=== PATIENT | female | born 1985 | race Caucasian/White ===

== ENCOUNTER 2020-02-15 12:49 | Emergency (ER) | payer MEDICAID, OTHER ==
--- NOTE | 2020-02-15 13:22 | EDM.PDOC ---
ED HPI GENERAL MEDICAL PROBLEM - General Chief Complaint: Drug or Alcohol Abuse Stated Complaint: DRUG WITHDRAWL Time Seen by Provider: 02/15/20 13:21 - History of Present Illness INITIAL COMMENTS - FREE TEXT/NARRATIVE: 34-year-old female presents to the emergency room after being referred here for medical clearance from [facility]. The patient needs to go to a group home house. And she cannot be on any medications for this the patient's been on Suboxone what sounds like 16 mg twice daily but sometimes she has been out of this for several days now. She is having some anxiety. The patient is to go to the [facility] until she is ready to go to the group home house. The patient has come off Suboxone in the past with the assistance of some Valium like medications according to the patient and has done okay. Generalized Pain Score (Numeric/FACES): 7 - Related Data Allergies Allergy/AdvReac Type Severity Reaction Status Date / Time erythromycin base Allergy Rash Verified 02/15/20 13:17 tramadol Allergy Rash Verified 02/15/20 13:17 Home Meds: Home Meds . [No Known Home Meds] 02/15/20 [History] Past Medical History - Infectious Disease History Infectious Disease History: Reports: Hepatitis C - Past Surgical History Musculoskeletal Surgical History: Reports: Other (See Below) Other Musculoskeletal Surgeries/Procedures:: metal plate in left arm Social & Family History - Tobacco Use Tobacco Use Status *Q: Current Every Day Tobacco User Years of Tobacco use: 23 Packs/Tins Daily: 1 - Caffeine Use Caffeine Use: Reports: None - Recreational Drug Use Recreational Drug Use: Yes Drug Use in Last 12 Months: Yes Recreational Drug Type: Reports: Marijuana/Hashish Recreational Drug Last Use: last December ED ROS GENERAL - Review of Systems Review Of Systems: See Below Constitutional: Reports: No Symptoms HEENT: Reports: No Symptoms Respiratory: Reports: No Symptoms Cardiovascular: Reports: No Symptoms GI/Abdominal: Reports: Nausea. Denies: Abdominal Pain, Vomiting : Reports: No Symptoms Musculoskeletal: Reports: No Symptoms Skin: Reports: No Symptoms Neurological: Reports: No Symptoms Psychiatric: Reports: Anxiety Hematologic/Lymphatic: Reports: No Symptoms Immunologic: Reports: No Symptoms ED EXAM, GENERAL - Physical Exam Exam: See Below Exam Limited By: No Limitations General Appearance: Alert, No Apparent Distress, Other (Is doing well at this time really no tachycardia she is a little anxious) Ears: Normal External Exam, Normal Canal, Hearing Grossly Normal, Normal TMs Ear Exam: Bilateral Ear: Auricle Normal, Canal Normal, TM normal Nose: Normal Inspection, Normal Mucosa, No Blood Throat/Mouth: Normal Inspection, Normal Lips, Normal Teeth, Normal Gums, Normal Oropharynx, Normal Voice, No Airway Compromise Head: Atraumatic, Normocephalic Neck: Normal Inspection Respiratory/Chest: No Respiratory Distress, Lungs Clear, Normal Breath Sounds, No Accessory Muscle Use, Chest Non-Tender Cardiovascular: Regular Rate, Rhythm, No Edema, No Murmur GI/Abdominal: Normal Bowel Sounds, Soft, Non-Tender Back Exam: Normal Inspection. No: CVA Tenderness (L), CVA Tenderness (R) Extremities: Normal Inspection, No Pedal Edema Neurological: Alert, Oriented, Normal Cognition Psychiatric: Anxious (Mildly so) Course - Vital Signs Last Recorded V/S: Last Vital Signs Temp 36.9 C 02/15/20 13:15 Pulse 91 02/15/20 13:15 Resp 16 02/15/20 13:15 BP 127/86 02/15/20 13:15 Pulse Ox 99 02/15/20 13:15 - Orders/Labs/Meds Orders: Active Orders 24 hr Category Date Time Status CULTURE URINE [RM] Stat Lab 02/15/20 16:41 Received Labs: Laboratory Tests 02/15/20 02/15/20 02/15/20 Range/Units 16:40 16:40 16:40 WBC 3.86 L (3.98-10.04) K/mm3 RBC 3.92 L (3.98-5.22) M/mm3 Hgb 11.3 (11.2-15.7) gm/dl Hct 35.2 (34.1-44.9) % MCV 89.8 (79.4-94.8) fl MCH 28.8 (25.6-32.2) pg MCHC 32.1 L (32.2-35.5) g/dl RDW Std Deviation 41.6 (36.4-46.3) fL Plt Count 178 L (182-369) K/mm3 MPV 10.6 (9.4-12.3) fl Neut % (Auto) 46.6 (34.0-71.1) % Lymph % (Auto) 36.3 (19.3-51.7) % [place] % (Auto) 14.2 H (4.7-12.5) % Eos % (Auto) 2.1 (0.7-5.8) Baso % (Auto) 0.5 (0.1-1.2) % Neut # (Auto) 1.80 (1.56-6.13) K/mm3 Lymph # (Auto) 1.40 (1.18-3.74) K/mm3 [place] # (Auto) 0.55 H (0.24-0.36) K/mm3 Eos # (Auto) 0.08 (0.04-0.36) K/mm3 Baso # (Auto) 0.02 (0.01-0.08) K/mm3 Sodium 137 (136-145) mEq/L Potassium 4.0 (3.5-5.1) mEq/L Chloride 103 (98-107) mEq/L Carbon Dioxide 26 (21-32) mEq/L Anion Gap 12.0 (5-15) BUN 8 (7-18) mg/dL Creatinine 0.7 (0.55-1.02) mg/dL Est Cr Clr Drug Dosing 79.80 mL/min Estimated GFR (MDRD) > 60 (>60) mL/min BUN/Creatinine Ratio 11.4 L (14-18) Glucose 108 H (74-106) mg/dL Calcium 8.9 (8.5-10.1) mg/dL Total Bilirubin 0.4 (0.2-1.0) mg/dL AST 70 H (15-37) U/L ALT 102 H (14-59) U/L Alkaline Phosphatase 85 (46-116) U/L Total Protein 7.7 (6.4-8.2) g/dl Albumin 3.1 L (3.4-5.0) g/dl Globulin 4.6 gm/dL Albumin/Globulin Ratio 0.7 L (1-2) TSH 3rd Generation 0.467 (0.358-3.74) uIU/mL HCG, Qual Negative (NEGATIVE) Urine Color (Yellow) Urine Appearance (Clear) Urine pH (5.0-8.0) Ur Specific [place] (1.005-1.030) Urine Protein (Negative) Urine Glucose (UA) (Negative) Urine Ketones (Negative) Urine Occult Blood (Negative) Urine Nitrite (Negative) Urine Bilirubin (Negative) Urine Urobilinogen (0.2-1.0) Ur Leukocyte Esterase (Negative) Urine RBC (0-5) /hpf Urine WBC (0-5) /hpf Ur Squamous Epith Cells (0-5) /hpf Urine Bacteria (FEW) /hpf Urine Mucus (FEW) /hpf Urine Opiates Screen (NVGXTT=136) Ur Buprenorphine Scrn (CUTOFF=10) Ur Oxycodone Screen (PUQ2NI=614) Urine Methadone Screen (IMIGGZ=066) Ur Propoxyphene Screen (IBYAAG=542) Ur Barbiturates Screen (OGSCRZ=241) Ur Tricyclics Screen (MIEBXB=787) Ur Phencyclidine Scrn (CUTOFF=25) Ur Amphetamine Screen (POVJPF=870) U Methamphetamines Scrn (MYZKME=845) U Benzodiazepines Scrn (YHUZCD=748) U Cocaine Metab Screen (GVEBSU=442) U Marijuana (THC) Screen (CUTOFF=50) Ethyl Alcohol 0.00 (0.00) gm% 02/15/20 02/15/20 Range/Units 16:41 16:41 WBC (3.98-10.04) K/mm3 RBC (3.98-5.22) M/mm3 Hgb (11.2-15.7) gm/dl Hct (34.1-44.9) % MCV (79.4-94.8) fl MCH (25.6-32.2) pg MCHC (32.2-35.5) g/dl RDW Std Deviation (36.4-46.3) fL Plt Count (182-369) K/mm3 MPV (9.4-12.3) fl Neut % (Auto) (34.0-71.1) % Lymph % (Auto) (19.3-51.7) % [place] % (Auto) (4.7-12.5) % Eos % (Auto) (0.7-5.8) Baso % (Auto) (0.1-1.2) % Neut # (Auto) (1.56-6.13) K/mm3 Lymph # (Auto) (1.18-3.74) K/mm3 [place] # (Auto) (0.24-0.36) K/mm3 Eos # (Auto) (0.04-0.36) K/mm3 Baso # (Auto) (0.01-0.08) K/mm3 Sodium (136-145) mEq/L Potassium (3.5-5.1) mEq/L Chloride (98-107) mEq/L Carbon Dioxide (21-32) mEq/L Anion Gap (5-15) BUN (7-18) mg/dL Creatinine (0.55-1.02) mg/dL Est Cr Clr Drug Dosing mL/min Estimated GFR (MDRD) (>60) mL/min BUN/Creatinine Ratio (14-18) Glucose (74-106) mg/dL Calcium (8.5-10.1) mg/dL Total Bilirubin (0.2-1.0) mg/dL AST (15-37) U/L ALT (14-59) U/L Alkaline Phosphatase (46-116) U/L Total Protein (6.4-8.2) g/dl Albumin (3.4-5.0) g/dl Globulin gm/dL Albumin/Globulin Ratio (1-2) TSH 3rd Generation (0.358-3.74) uIU/mL HCG, Qual (NEGATIVE) Urine Color Yellow (Yellow) Urine Appearance Cloudy H (Clear) Urine pH 6.0 (5.0-8.0) Ur Specific [place] > or = 1.030 (1.005-1.030) Urine Protein Negative (Negative) Urine Glucose (UA) Negative (Negative) Urine Ketones Negative (Negative) Urine Occult Blood Trace-intact H (Negative) Urine Nitrite Negative (Negative) Urine Bilirubin Negative (Negative) Urine Urobilinogen 0.2 (0.2-1.0) Ur Leukocyte Esterase 2+ H (Negative) Urine RBC 5-10 H (0-5) /hpf Urine WBC 30-40 H (0-5) /hpf Ur Squamous Epith Cells 10-20 H (0-5) /hpf Urine Bacteria Moderate H (FEW) /hpf Urine Mucus Moderate H (FEW) /hpf Urine Opiates Screen Negative (CZHIRL=940) Ur Buprenorphine Scrn Presumptive positive (CUTOFF=10) Ur Oxycodone Screen Negative (GET7AY=982) Urine Methadone Screen Negative (JCLPTL=644) Ur Propoxyphene Screen Negative (MXFFPF=281) Ur Barbiturates Screen Negative (KEFYOC=311) Ur Tricyclics Screen Negative (IFQTFZ=690) Ur Phencyclidine Scrn Negative (CUTOFF=25) Ur Amphetamine Screen Presumptive positive H (YIPSRM=553) U Methamphetamines Scrn Presumptive positive H (DVQMPZ=985) U Benzodiazepines Scrn Negative (NGWLDC=621) U Cocaine Metab Screen Negative (YKZIIT=545) U Marijuana (THC) Screen Presumptive positive H (CUTOFF=50) Ethyl Alcohol (0.00) gm% Meds: Medications Discontinued Medications Generic Name Dose Route Start Last Admin Trade Name Freq PRN Reason Stop Dose Admin Lorazepam 1 mg 02/15/20 16:33 02/15/20 16:40 Ativan PO 02/15/20 16:34 1 mg ONETIME ONE Administration - Radiology Interpretation Free Text/Narrative:: The patient has done well with what sounds like benzodiazepine assistance and stopping the Suboxone in the past. Patient is doing well 2 days off the Suboxone with a little bit of anxiety. We will attempt assisting her off this abrupt cessation of Suboxone with benzodiazepines at this point. Patient has no more Suboxone remaining so tapering this is unrealistic. - Re-Assessments/Exams Free Text/Narrative Re-Assessment/Exam: 02/15/20 19:31 The patient did well she was given a milligram of Ativan. Laboratory evaluation is suggestive for developing UTI we will start her on Macrobid urine drug screen were positive for amphetamine and methamphetamine. As well as marijuana and the buprenorphine which is expected. EtOH is negative laboratory evaluation also suggests a mild transaminitis. Case discussed with bad labs she will go over there with Ativan 0.5 mg every 8 hours for 5 days in addition to the Macrobid 1 twice daily for 5 days. Departure - Departure Time of Disposition: 19:38 Disposition: Home, Self-Care 01 Clinical Impression: Buprenorphine dependence, Recreational drug use - Discharge Information Referrals: PCP,None [Primary Care Provider] - Forms: ED Department Discharge Additional Instructions: The patient is cleared to go to the [facility]. Return to the emergency room with any questions problems or worsening symptoms. Medications include Ativan 1 mg 1/2 tablet every 8 hours for 5 days. Macrobid 1 twice daily for 5 days for bladder infection Sepsis Event Note (ED) - Evaluation Sepsis Screening Result: No Definite Risk - Focused Exam Vital Signs: Vital Signs Temp Pulse Resp BP Pulse Ox 02/15/20 13:15 36.9 C 91 16 127/86 99 - My Orders Last 24 Hours: My Active Orders 02/15/20 16:41 CULTURE URINE [RM] Stat - Assessment/Plan Last 24 Hours: My Active Orders 02/15/20 16:41 CULTURE URINE [RM] Stat
[2020-02-15] MEDS ORDERED: LORazepam 1 MG Tab PO ONE (16:33)
== END 2020-02-15 20:25 | disposition home or self-care (01) ==
LOC: JD.ED 12:49
DX: F11.20 Opioid dependence, uncomplicated (principal); F17.210 Nicotine dependence, cigarettes, uncomplicated; Z88.1 Allergy status to other antibiotic agents; Z88.5 Allergy status to narcotic agent
CPT/HCPCS: 36415; 80053; 80306; 80307; 81001; 84443; 84703; 85025; 87086; 99283; A9270

== ENCOUNTER 2020-02-28 16:33 | Emergency (ER) | payer MEDICAID ==
--- NOTE | 2020-02-28 18:27 | EDM.PDOC ---
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 This has been going on for a bout a week. Her LNMP is January 07 and she is concerned she may be . She also had a ovarian cyst this summer and it was very large and she nearly needed surgery. She has some signs of such as breast tenderness and weight gain. She has no vaginal bleeding or discharge. She has no fever, chills, cough, congestion, runny nose, chest pain, or shortness of breath. She has no dysuria. Onset: Gradual Duration: Day(s): Location: Reports: Pelvis Quality: Reports: Ache Severity: Mild Improves with: Reports: None Worsens with: Reports: None Associated Symptoms: Reports: No Other Symptoms - Related Data Allergies Allergy/AdvReac Type Severity Reaction Status Date / Time erythromycin base Allergy Rash Verified 02/15/20 13:17 tramadol Allergy Rash Verified 02/15/20 13:17 Home Meds: Home Meds hydrOXYzine HCL [hydrOXYzine] 50 mg PO BEDTIME 02/28/20 [History] lamoTRIgine [Lamictal ([place])] 75 mg PO BID 02/28/20 [History] Past Medical History Respiratory History: Reports: Asthma HAND HEEL SEAT FITTER History: Reports: Other (See Below) Other HAND HEEL SEAT FITTER History: ovarian cyst - Infectious Disease History Infectious Disease History: Reports: Hepatitis C - Past Surgical History Musculoskeletal Surgical History: Reports: Other (See Below) Other Musculoskeletal Surgeries/Procedures:: metal plate in left arm Social & Family History - Tobacco Use Tobacco Use Status *Q: Current Every Day Tobacco User Years of Tobacco use: 23 Packs/Tins Daily: 0.5 - Caffeine Use Caffeine Use: Reports: Coffee, Energy Drinks, Soda, Tea - Recreational Drug Use Recreational Drug Use: No ED ROS GENERAL - Review of Systems Review Of Systems: See Below Constitutional: Reports: No Symptoms HEENT: Reports: No Symptoms Respiratory: Reports: No Symptoms Cardiovascular: Reports: No Symptoms Endocrine: Reports: No Symptoms GI/Abdominal: Reports: No Symptoms : Reports: Other (Pelvic pain) Musculoskeletal: Reports: No Symptoms Skin: Reports: No Symptoms ED EXAM, RENAL/ - Physical Exam Exam: See Below Exam Limited By: No Limitations General Appearance: Alert, No Apparent Distress Ears: Normal External Exam Nose: Normal Inspection Head: Atraumatic, Normocephalic Neck: Normal Inspection Respiratory/Chest: No Respiratory Distress, Lungs Clear, Normal Breath Sounds Cardiovascular: Regular Rate, Rhythm, No Edema, No Murmur GI/Abdominal: Soft, Non-Tender, No Organomegaly, No Mass Back Exam: Normal Inspection Course - Vital Signs Last Recorded V/S: Last Vital Signs Temp 98.8 F 02/28/20 16:53 Pulse 76 02/28/20 16:53 Resp 20 02/28/20 16:53 BP 118/90 02/28/20 16:53 Pulse Ox 100 02/28/20 16:53 - Orders/Labs/Meds Orders: Active Orders 24 hr Category Date Time Status Transvaginal Non OB [US] Stat Exams 02/28/20 17:06 Taken Labs: Laboratory Tests 02/28/20 02/28/20 Range/Units 17:00 17:00 WBC 7.03 (3.98-10.04) K/mm3 RBC 4.26 (3.98-5.22) M/mm3 Hgb 12.7 (11.2-15.7) gm/dl Hct 37.1 (34.1-44.9) % MCV 87.1 (79.4-94.8) fl MCH 29.8 (25.6-32.2) pg MCHC 34.2 (32.2-35.5) g/dl RDW Std Deviation 39.4 (36.4-46.3) fL Plt Count 250 (182-369) K/mm3 MPV 10.9 (9.4-12.3) fl Neut % (Auto) 55.5 (34.0-71.1) % Lymph % (Auto) 36.1 (19.3-51.7) % [place] % (Auto) 6.7 (4.7-12.5) % Eos % (Auto) 1.4 (0.7-5.8) Baso % (Auto) 0.3 (0.1-1.2) % Neut # (Auto) 3.90 (1.56-6.13) K/mm3 Lymph # (Auto) 2.54 (1.18-3.74) K/mm3 [place] # (Auto) 0.47 H (0.24-0.36) K/mm3 Eos # (Auto) 0.10 (0.04-0.36) K/mm3 Baso # (Auto) 0.02 (0.01-0.08) K/mm3 Sodium 136 (136-145) mEq/L Potassium 3.8 (3.5-5.1) mEq/L Chloride 100 (98-107) mEq/L Carbon Dioxide 26 (21-32) mEq/L Anion Gap 13.8 (5-15) BUN 13 (7-18) mg/dL Creatinine 0.9 (0.55-1.02) mg/dL Est Cr Clr Drug Dosing 62.07 mL/min Estimated GFR (MDRD) > 60 (>60) mL/min BUN/Creatinine Ratio 14.4 (14-18) Glucose 86 (74-106) mg/dL Calcium 9.6 (8.5-10.1) mg/dL Total Bilirubin 0.6 (0.2-1.0) mg/dL AST 70 H (15-37) U/L ALT 135 H (14-59) U/L Alkaline Phosphatase 91 (46-116) U/L Total Protein 9.1 H (6.4-8.2) g/dl Albumin 4.1 (3.4-5.0) g/dl Globulin 5.0 gm/dL Albumin/Globulin Ratio 0.8 L (1-2) HCG, Quant 2.0 mIU/mL - Re-Assessments/Exams Free Text/Narrative Re-Assessment/Exam: 02/28/20 18:35 I ordered labs and an US. The CBC and CMP look good. Her quant HCG is 2. Her US shows there is small amount of free fluid in the cul-de-sac which could be physiologic. No specific abnormality seen otherwise. Departure - Departure Time of Disposition: 18:40 Disposition: Home, Self-Care 01 Condition: Good Clinical Impression: Missed period - Discharge Information *PRESCRIPTION DRUG MONITORING PROGRAM REVIEWED*: Not Applicable *COPY OF PRESCRIPTION DRUG MONITORING REPORT IN PATIENT BABATUNDE: Not Applicable Referrals: PCP,None [Primary Care Provider] - Aline Daniels MD [Physician] - 1 Week Forms: ED Department Discharge Additional Instructions: Drink plenty of fluids. Take motrin or tylenol for pain. Follow up with Dr Daniels within a week or two if you do not have your period. Sepsis Event Note (ED) - Evaluation Sepsis Screening Result: No Definite Risk - Focused Exam Vital Signs: Vital Signs Temp Pulse Resp BP Pulse Ox 02/28/20 16:53 98.8 F 76 20 118/90 100 - My Orders Last 24 Hours: My Active Orders 02/28/20 17:06 Transvaginal Non OB [US] Stat - Assessment/Plan Last 24 Hours: My Active Orders 02/28/20 17:06 Transvaginal Non OB [US] Stat
--- NOTE | 2020-03-01 12:00 | US ---
PROCEDURE INFORMATION: Exam: US Pelvis, Transvaginal Exam date and time: 02/28/2020 5:12 PM Age: 34 years old Clinical indication: Abdominal pain; Lower abdomen TECHNIQUE: Imaging protocol: Real-time transvaginal pelvic ultrasound with image documentation. Transvaginal imaging was used for better evaluation of the endometrium, adnexa, and/or cervix. COMPARISON: No relevant prior studies available. FINDINGS: Uterus/cervix: The uterus measures 8.0 x 4.6 x 5.6 cm. The uterus is anteverted. The endometrium measures 10 mm. No intrauterine fluid collection. Right adnexa: Right ovary measures 2.9 x 1.6 x 1.8 cm. Color-flow documented. Left adnexa: The left ovary measures 2.5 x 1.6 x 1.8 cm. Color-flow documented. Gestation: No gestational sac, new yolk sac, no pole identified. Intraperitoneal space: The small amount of free fluid in the cul-de-sac. IMPRESSION: 1. There is a small amount of free fluid in the cul-de-sac which could be physiologic. 2. No specific abnormality seen otherwise. 3. Patient's status is not documented, if the patient is the would be of unknown location and follow-up studies/HCG levels would be recommended. Thank you for allowing us to participate in the care of your patient. Dictated and Authenticated by: Jens Renee MD 02/28/2020 6:50 PM Central Time ([place] & [place]) [facility]
== END 2020-02-28 18:52 | disposition home or self-care (01) ==
LOC: JD.ED 16:33
DX: N92.5 Other specified irregular menstruation (principal); J45.909 Unspecified asthma, uncomplicated; F17.210 Nicotine dependence, cigarettes, uncomplicated; Z88.1 Allergy status to other antibiotic agents; Z88.5 Allergy status to narcotic agent
CPT/HCPCS: 36415; 76830; 76830-26; 80053; 84702; 85025; 99283; 99284-25